=== PATIENT | female | born 1955 | race Caucasian/White ===

== ENCOUNTER 2018-06-27 10:56 | Outpatient (CLI) | payer OTHER | END 2018-06-27 10:57 | disposition home or self-care (01) | LOC: BICMAMMO 10:56 | PROVIDERS: ATTEND Family Medicine | DX: Z12.31 Encounter for screening mammogram for malignant neoplasm of breast (principal); Z80.3 Family history of malignant neoplasm of breast | CPT/HCPCS: 77063; 77067 ==

== ENCOUNTER 2025-05-14 12:54 | Outpatient (CLI) | payer MEDICARE, OTHER | END 2025-05-14 12:55 | disposition home or self-care (01) | LOC: MRI 12:54 | PROVIDERS: ATTEND Family Medicine Sports Medicine | DX: M25.472 Effusion, left ankle (principal); M85.661 Other cyst of bone, right lower leg; M76.9 Unspecified enthesopathy, lower limb, excluding foot; M25.572 Pain in left ankle and joints of left foot ==